=== PATIENT | female | born 1945 | race Two or more races ===

== ENCOUNTER 2023-03-31 14:50 | Inpatient (IN) | payer OTHER ==
[~2023-03-31] VITALS: Ht 157.5 cm; Wt 70.3 kg
[2023-04-03] MEDS ORDERED: TRIAM (11:30)
[2023-04-03] MEDS ORDERED: HYDROC PO (11:31)
[2023-04-03] MEDS ORDERED: LEVOTHY (11:32)
[2023-04-03] MEDS ORDERED: ADULT LOW DOSE81 M1 PO (11:33)
[2023-04-03] MEDS ORDERED: TIROSINT75 MCG PO (11:33)
[2023-04-03] MEDS ORDERED: VASOF PO (11:34)
[2023-04-03] MEDS ORDERED: ACID REDUCER20 M1 PO (11:34)
[2023-04-03] MEDS ORDERED: [UNRECOGNIZED DRUG - OTHER] PO (11:35)
[2023-04-07] MEDS ORDERED: OMEPRAZOLE20 MG (14:56)
[2023-04-07] MEDS ORDERED: SIMVASTATIN20 MG (14:56)
[2023-04-07] MEDS ORDERED: ALENDRONATE SOD35 MG (14:56)
[2023-04-07] MEDS ORDERED: TRIAMTERENE-HC1 EAC1 (14:56)
[2023-04-07] MEDS ORDERED: HYFIBER WI12 GM/302 (15:00)
[2023-04-07] MEDS ORDERED: VASOFLEX D1 CA1 EACH (15:00)
[2023-04-08] MEDS ORDERED: PEPCID AC20 MG PO (12:00)
[2023-04-08] MEDS ORDERED: AMOX1TAB5 PO (12:00)
[2023-04-08] MEDS ORDERED: TRAM1TAB98 PO (12:01)
== END 2023-04-08 13:45 | disposition home or self-care (01) | DRG 334 ==
LOC: SURH 04-07 05:16 → O/R 04-07 05:16 → SURG 04-07 07:00 → SURH 04-07 09:52
PROVIDERS: ADMIT Surgery; ATTEND Surgery
PROC: 0DBNFZZ Excision of Sigmoid Colon, Via Natural or Artificial Opening With Percutaneous Endoscopic Assistance (ICD-10-PCS; 2023-04-07)
PROC: 0DUR0JZ Supplement Anal Sphincter with Synthetic Substitute, Open Approach (ICD-10-PCS; 2023-04-07)
PROC: 0DBQ7ZZ Excision of Anus, Via Natural or Artificial Opening (ICD-10-PCS; 2023-04-07)
PROC: 3E0T3BZ Introduction of Anesthetic Agent into Peripheral Nerves and Plexi, Percutaneous Approach (ICD-10-PCS; 2023-04-07)
PROC: 0DBP0ZZ Excision of Rectum, Open Approach (ICD-10-PCS; principal; 2023-04-07 07:00)
DX: K62.3 Rectal prolapse (principal); R15.9 Full incontinence of feces; Z20.822 Contact with and (suspected) exposure to COVID-19; I10 Essential (primary) hypertension; E03.8 Other specified hypothyroidism; M81.0 Age-related osteoporosis without current pathological fracture

== ENCOUNTER 2024-05-10 09:00 | Inpatient (IN) | payer OTHER ==
[~2024-05-10] VITALS: Ht 157.5 cm; Wt 70.8 kg
[~2024-05-10 09:00] MED LIST: ACID REDUCER20 M1 PO; ADULT LOW DOSE81 M1 PO; ALENDRONATE SOD35 MG; AMOX1TAB5 PO; HYDROC PO; HYFIBER WI12 GM/302; LEVOTHY; OMEPRAZOLE20 MG; PEPCID AC20 MG PO; SIMVASTATIN20 MG; TIROSINT75 MCG PO; TRAM1TAB98 PO; TRIAM; TRIAMTERENE-HC1 EAC1; VASOF PO; VASOFLEX D1 CA1 EACH; [UNRECOGNIZED DRUG - OTHER] PO
[2024-05-10] MEDS ORDERED: DAFLONEX-XL 11300 MG PO (10:04)
[2024-05-10 10:08] VITALS: BP 160/89
[2024-05-10 10:11] LABS: HEMATOCRIT 38.9 % (36.0-45.00); HEMOGLOBIN 12.8 g/dL (12.0-15.00); MEAN CELL VOLUME 83.4 fL (80.00-100.00); MEAN CORPUSCULAR HEMOGLOBIN 27.5 pg (27.00-32.0); MEAN CORPUSCULAR HGB CONC 32.9 g/dl (32.0-36.0); PLATELET COUNT 225 K/uL (150-450); RED BLOOD COUNT 4.67 M/uL (4.00-6.00); RED CELL DISTRIBUTION WIDTH 14.1 % (11.5-14.5)
[2024-05-10 10:20] LABS: PH,URINE 6.5 (5.0-8.0); URINE APPEARANCE Clear; URINE BILIRRUBIN Negative (NEGATIVE); URINE BLOOD Negative; URINE COLOR Yellow; URINE GLUCOSE Negative (NEGATIVE); URINE KETONE Negative (NEGATIVE); URINE LEUKOCYTE Negative; URINE NITRATE Negative; URINE PROTEIN Negative (NEGATIVE); URINE UROBILINOGEN 0.2 E.U./dl
[2024-05-10 10:24] LABS: URINE BACTERIA 21.4 uL (0.0-1933); URINE RBC 15.8 uL (0.0-20.8); URINE WBC 2.1 uL (0.0-23.2)
[2024-05-10 10:30] LABS: INR 1.15; PARTIAL THROMBOPLASTIN TIME 29.9 SECONDS (22.0-34.0)
[2024-05-10 10:46] LABS: PROTHROMBIN TIME 12.4 SECONDS (9.0-11.5)
[2024-05-10 11:17] LABS: ALBUMIN 3.4 gm/dL (3.4-5.0); BILIRUBIN TOTAL 0.63 mg/dL (0.3-1.2); CALCIUM 9.4 mg/dL (8.5-10.1); CREATININE SERUM 0.72 mg/dL (0.55-1.02); GFR 78.14; GLOBULINA 3.6 G/DL (2.4-3.5); POTASSIUM 3.97 mEq/L (3.5-5.1)
[2024-05-17] MEDS ORDERED: LIDOCAINE HCL 1%/EPINEPHRINE 20ML VIAL IJ ONE (12:19)
[2024-05-17] MEDS ORDERED: CEFTRIAXONE SODIUM 2,000 MG VIAL ONE (12:19)
[2024-05-17] MEDS ORDERED: METRONIDAZOLE/SODIUM CHLORIDE 500 MG/100 ML PIGGYBACK IV ONE ×3 (12:19→16:49)
[2024-05-17] MEDS ORDERED: BUPIVACAINE HCL/Mpf 0.5% 10ML VIAL ONE (12:19)
[2024-05-17] MEDS ORDERED: POVIDONE-IODINE 118 ML BOTT TOP ONE ×2 (12:21→13:00)
[2024-05-17] MEDS ORDERED: DIBUCAINE 30 GM TUBE ONE (12:21)
[2024-05-17] MEDS ORDERED: HEMOSTATIC MATRIX 1 KIT KIT TOP ONE (12:22)
[2024-05-17] MEDS ORDERED: CEFTRIAXONE SODIUM 2,000 MG VIAL IV ONE (13:00)
[2024-05-17] MEDS ORDERED: TIMOLOL MALEATE5 M4 (13:40)
[2024-05-17] MEDS ORDERED: OxyCODONE HCL 5 MG TABLET (ROXICODONE) PO PRN (15:00)
[2024-05-17] MEDS ORDERED: MORPHINE SULFATE 4 MG/ML CARTRIDGE IV PRN (15:00)
[2024-05-17] MEDS ORDERED: RINGERS SOLUTION,LACTATED 1,000 ML IV SCH (15:00)
[2024-05-17] MEDS ORDERED: ONDANSETRON HCL 2 MG/ML VIAL IV PRN (15:00)
[2024-05-17] MEDS ORDERED: CEFAZOLIN SODIUM 1,000 MG VIAL ONE (16:49)
[2024-05-17] MEDS ORDERED: CEFAZOLIN SODIUM 1,000 MG VIAL IV SCH (17:00)
[2024-05-17] MEDS ORDERED: METRONIDAZOLE/SODIUM CHLORIDE 500 MG/100 ML PIGGYBACK IV SCH (17:00)
[2024-05-17] MEDS ORDERED: GABAPENTIN 300 MG CAPSULE PO SCH (17:00)
[2024-05-17] MEDS ORDERED: HYOSCYAMINE SULFATE 0.125 MG TAB.SUBL SL SCH (17:00)
[2024-05-17] MEDS ORDERED: POLYETHYLENE GLYCOL 3350 17 GM BLIST.PACK PO SCH (17:00)
[2024-05-17] MEDS ORDERED: TAMSULOSIN HCL 0.4 MG CAP PO SCH (17:00)
[2024-05-17] MEDS ORDERED: ACETAMINOPHEN 500 MG GEL..CAP PO SCH (18:00)
[2024-05-17 18:38] VITALS: BP 118/59; O2SAT 98
[2024-05-17] MEDS ORDERED: FAMOTIDINE/PF 20 MG/2 ML VIAL IV PUSH SCH (21:00)
[2024-05-17] MEDS ORDERED: CIPROFLOXACIN IN 5 % DEXTROSE 400 MG/200 ML PIGGYBAG IV SCH (21:00)
[2024-05-18] VITALS: BP 102/51; O2SAT 94
[2024-05-18 08:00] VITALS: BP 123/63; O2SAT 98
[2024-05-18 08:14] LABS: HEMATOCRIT 34.9 % (36.0-45.00); HEMOGLOBIN 11.5 g/dL (12.0-15.00); MEAN CELL VOLUME 84.5 fL (80.00-100.00); MEAN CORPUSCULAR HEMOGLOBIN 27.8 pg (27.00-32.0); MEAN CORPUSCULAR HGB CONC 32.9 g/dl (32.0-36.0); PLATELET COUNT 166 K/uL (150-450); RED BLOOD COUNT 4.13 M/uL (4.00-6.00); RED CELL DISTRIBUTION WIDTH 13.9 % (11.5-14.5)
[2024-05-18 08:48] LABS: ALBUMIN 2.5 gm/dL (3.4-5.0); CALCIUM 7.9 mg/dL (8.5-10.1); CREATININE SERUM 0.86 mg/dL (0.55-1.02); GFR 63.65; MAGNESIUM 1.9 mg/dL (1.8-2.4); PHOSPHOROUS 3.1 mg/dL (2.5-4.9); POTASSIUM 3.54 mEq/L (3.5-5.1)
[2024-05-18] MEDS ORDERED: LACTOBACILLUS ACIDOPHILUS 1 CAP CAP PO SCH (09:00)
[2024-05-18 16:58] VITALS: BP 125/72; O2SAT 95
[2024-05-18] MEDS ORDERED: ENOXAPARIN SODIUM 40 MG/0.4 ML SYRINGE SUBCUTANEO SCH (17:00)
[2024-05-19 00:25] VITALS: BP 97/60; O2SAT 96
[2024-05-19] MEDS ORDERED: LEVOTHYROXINE SODIUM 75 MCG TABLET PO SCH (06:00)
[2024-05-19] MEDS ORDERED: ENOXAPARIN SODIUM 40 MG/0.4 ML SYRINGE SUBCUTANEO SCH (09:00)
[2024-05-19 09:13] VITALS: BP 143/75; O2SAT 97
[2024-05-19] MEDS ORDERED: LEVSIN/SL0.125 MG SL (11:25)
[2024-05-19] MEDS ORDERED: CIPRO500 MG PO (11:26)
[2024-05-19] MEDS ORDERED: INTESTINEX680 M1 PO (11:26)
[2024-05-19] MEDS ORDERED: METRONIDAZOLE500 MG PO (11:28)
== END 2024-05-19 11:36 | disposition home or self-care (01) | DRG 330 ==
LOC: O/R 05-17 05:45 → SURH 05-17 05:45
PROVIDERS: ADMIT Surgery; ATTEND Surgery
PROC: 0DBP4ZZ Excision of Rectum, Percutaneous Endoscopic Approach (ICD-10-PCS; 2024-05-17)
PROC: 3E0T3BZ Introduction of Anesthetic Agent into Peripheral Nerves and Plexi, Percutaneous Approach (ICD-10-PCS; 2024-05-17)
PROC: 0DTN4ZZ Resection of Sigmoid Colon, Percutaneous Endoscopic Approach (ICD-10-PCS; principal; 2024-05-17 07:00)
DX: K62.3 Rectal prolapse (principal); K62.5 Hemorrhage of anus and rectum; R15.9 Full incontinence of feces; K62.89 Other specified diseases of anus and rectum; N81.84 Pelvic muscle wasting; N39.3 Stress incontinence (female) (male); I10 Essential (primary) hypertension

== ENCOUNTER 2025-04-18 09:36 | Inpatient (IN) | payer OTHER ==
[~2025-04-18] VITALS: Ht 157.5 cm; Wt 69.9 kg
[~2025-04-18 09:36] MED LIST changes: +CIPRO500 MG PO; +DAFLONEX-XL 11300 MG PO; +INTESTINEX680 M1 PO; +LEVSIN/SL0.125 MG SL; +METRONIDAZOLE500 MG PO; +TIMOLOL MALEATE5 M4
[2025-04-18 10:17] VITALS: BP 150/80
[2025-04-18] MEDS ORDERED: [UNRECOGNIZED DRUG - OTHER] (10:22)
[2025-04-18] MEDS ORDERED: DAFLONEX-XL 11300 MG (10:22)
[2025-04-25] MEDS ORDERED: MORPHINE SULFATE 4 MG/ML CARTRIDGE IV PRN (08:00)
[2025-04-25] MEDS ORDERED: RINGERS SOLUTION,LACTATED 1,000 ML IV SCH (08:00)
[2025-04-25] MEDS ORDERED: ONDANSETRON HCL 2 MG/ML VIAL IV PRN (08:00)
[2025-04-25] MEDS ORDERED: OxyCODONE HCL 5 MG TABLET (ROXICODONE) PO PRN (08:00)
[2025-04-25] MEDS ORDERED: FAMOTIDINE/PF 20 MG/2 ML VIAL IV PUSH SCH (09:00)
[2025-04-25] MEDS ORDERED: TAMSULOSIN HCL 0.4 MG CAP PO SCH (09:00)
[2025-04-25] MEDS ORDERED: LACTOBACILLUS ACIDOPHILUS 1 CAP CAP PO SCH (09:00)
[2025-04-25] MEDS ORDERED: HYOSCYAMINE SULFATE 0.125 MG TAB.SUBL SL SCH (09:00)
[2025-04-25] MEDS ORDERED: BUPIVACAINE HCL 30 ML VIAL IJ ONE (09:15)
[2025-04-25] MEDS ORDERED: DIBUCAINE 30 GM TUBE RECTAL ONE (09:15)
[2025-04-25] MEDS ORDERED: CEFTRIAXONE SODIUM 2,000 MG VIAL IV ONE (09:15)
[2025-04-25] MEDS ORDERED: HEMOSTATIC MATRIX 1 KIT KIT TOP ONE (09:15)
[2025-04-25] MEDS ORDERED: METRONIDAZOLE/SODIUM CHLORIDE 500 MG/100 ML PIGGYBACK IV ONE (09:15)
[2025-04-25] MEDS ORDERED: LIDOCAINE HCL 1%/EPINEPHRINE 20ML VIAL IJ ONE (09:15)
[2025-04-25] MEDS ORDERED: ACETAMINOPHEN 500 MG GEL..CAP PO SCH (12:00)
[2025-04-25] MEDS ORDERED: MORPHINE SULFATE 4 MG/ML VIAL IV ONE (12:40)
[2025-04-25 17:08] VITALS: BP 130/70; O2SAT 95
[2025-04-25] MEDS ORDERED: PIPERACILLIN/TAZOBACTAM SODIUM 3.375 GM in 0.9 % SODIUM CHLORIDE 100 ML IV SCH (18:00)
[2025-04-25] MEDS ORDERED: CEFTRIAXONE SODIUM 1,000 MG in 0.9 % SODIUM CHLORIDE 100 ML IV SCH (21:00)
[2025-04-26 01:27] VITALS: BP 103/71; O2SAT 96
[2025-04-26] MEDS ORDERED: LEVOTHYROXINE SODIUM 75 MCG TABLET PO SCH (06:00)
[2025-04-26 06:52] LABS: URINE APPEARANCE Clear; URINE BILIRRUBIN Negative (NEGATIVE); URINE BLOOD Negative; URINE COLOR Yellow; URINE GLUCOSE Negative (NEGATIVE); URINE KETONE Negative (NEGATIVE); URINE LEUKOCYTE Trace; URINE NITRATE Negative; URINE PROTEIN Negative (NEGATIVE); URINE UROBILINOGEN 0.2 E.U./dl
[2025-04-26 06:55] LABS: URINE BACTERIA 32.3 uL (0.0-1933); URINE EPITHELIAL CELLS 3.2 uL (0.0-38.8); URINE RBC 2.4 uL (0.0-20.8); URINE WBC 15.5 uL (0.0-23.2)
[2025-04-26 07:00] LABS: URINE CAST 0.00 uL (0.0-1.40)
[2025-04-26 07:19] LABS: BASO % 0.1 % (0.1-1.2); EOS # 0.05 (0.04-0.54); EOS % 0.6 % (0.7-7.0); LYMPH # 1.30 (1.18-3.74); LYMPH % 15.0 % (19.3-53.1); MEAN PLATELET VOLUME 10.80 fl (9.4-12.4); MONO # 0.58 (0.24-0.82); MONO % 6.7 % (4.7-12.5); NEUT # 6.68 (1.56-6.13); NEUT % 77.4 % (34.0-71.1); RED CELL DISTRIBUTION WIDTH 13.5 % (11.6-14.4)
[2025-04-26 07:57] LABS: ALT/SGPT 19.0 U/L (12-78); AST/SGOT 17.0 U/L (15-37); BILIRUBIN TOTAL 0.81 mg/dL (0.3-1.2); BUN CREA RATIO 11.0 (7.0-25.0); CREATININE SERUM 0.82 mg/dL (0.55-1.02); GFR 67.07; GLOBULINA 3.0 G/DL (2.4-3.5); GLUCOSE FASTING 99.0 mg/dL (65-100); OSMOLALITY SERUM 280.0 MOSM/KG (275-295)
[2025-04-26 08:00] VITALS: BP 125/70; O2SAT 95
[2025-04-26] MEDS ORDERED: CEFTRIAXONE SODIUM 2,000 MG VIAL IV SCH (09:00)
[2025-04-26] MEDS ORDERED: POTASSIUM CHLORIDE 20MEQ/100ML H2O PB IV NR (13:30)
[2025-04-26 16:00] VITALS: BP 117/63; O2SAT 97
[2025-04-26] MEDS ORDERED: ENOXAPARIN SODIUM 40 MG/0.4 ML SYRINGE SUBCUTANEO SCH (17:00)
[2025-04-27 01:28] VITALS: BP 136/78; O2SAT 97
[2025-04-27 08:00] VITALS: BP 149/84; O2SAT 97
[2025-04-27] MEDS ORDERED: ENOXAPARIN SODIUM 40 MG/0.4 ML SYRINGE SUBCUTANEO SCH (09:00)
[2025-04-27] MEDS ORDERED: AMOX-CLAV 875-1 EACH PO (12:43)
[2025-04-27] MEDS ORDERED: INTESTINEX680 M1 PO (12:44)
== END 2025-04-27 17:50 | disposition home or self-care (01) | DRG 331 ==
LOC: EDSTATUS 11:15 → ADM 11:15 → O/R 04-25 06:30 → SURH 04-25 06:30
PROVIDERS: Internal Medicine Infectious Disease; ADMIT Surgery; ATTEND Surgery
PROC: 0DBP4ZZ Excision of Rectum, Percutaneous Endoscopic Approach (ICD-10-PCS; 2025-04-25)
PROC: 0DUR0JZ Supplement Anal Sphincter with Synthetic Substitute, Open Approach (ICD-10-PCS; 2025-04-25)
PROC: 3E0T3BZ Introduction of Anesthetic Agent into Peripheral Nerves and Plexi, Percutaneous Approach (ICD-10-PCS; 2025-04-25)
PROC: 0DTN4ZZ Resection of Sigmoid Colon, Percutaneous Endoscopic Approach (ICD-10-PCS; principal; 2025-04-25 15:30)
DX: K62.3 Rectal prolapse (principal); N81.89 Other female genital prolapse; R15.9 Full incontinence of feces; I10 Essential (primary) hypertension; E03.9 Hypothyroidism, unspecified; M81.0 Age-related osteoporosis without current pathological fracture